=== PATIENT | male | born 1985 | race Caucasian/White ===

== ENCOUNTER 2017-06-26 00:55 | Emergency (ER) | payer SELFPAY ==
[~2017-06-26] VITALS: Ht 177.8 cm; Wt 65.8 kg
[~2017-06-26 00:55] MED LIST: (None)20 M1 PO; ACYC800 PO; ALBU90I INH; ALBU90OI INH; AMOX500 PO; AZIT250 PO; Amoxicillin500 MG PO; BENZ100A PO; CODGUAEL PO; CYCL10 PO; DIPH50 PO; Flonase 0.05% N16 GM; HYDACE10B PO; HYDACE5 PO; HYOS.125 SL; IBUP800 PO; KETO10 PO; METCAR500 PO; NAPR500 PO; OXYACE5T PO; OXYC5 PO; PRED10 PO; PROM25 PO; Pepcid40 MG PO; RANI150 PO; RXOXYACE PO; RXTRAM50 PO; SILSUL1TC TOP; TAMS.4ER PO; TRAM50 PO; [UNRECOGNIZED DRUG - REMARK]
[2017-06-26] MEDS ORDERED: Imitrex25 MG PO (04:55)
== END 2017-06-26 05:00 | disposition home or self-care (01) ==
LOC: ER 00:55
DX: R51 Headache (principal); Z88.5 Allergy status to narcotic agent; F17.210 Nicotine dependence, cigarettes, uncomplicated
CPT/HCPCS: 96372; 99283; J1885; Q0163

== ENCOUNTER → 2018-07-27 | Outpatient (CLI) | payer SELFPAY ==
[~2018-07-27] MED LIST changes: +Imitrex25 MG PO; +Zantac150 MG PO
[2018-07-27 10:17] LABS: BASOPHILS ABSOLUTE AUTO 0.03 K/mm3 (0.00-0.23); BASOPHILS PERCENT AUTO 0 % (0-2); EOSINOPHILS ABSOLUTE AUTO 0.01 K/mm3 (0.00-0.68); EOSINOPHILS PERCENT AUTO 0 % (0-6); Hematocrit 47.6 % (37.0-53.0); Hemoglobin 16.8 g/dL (13.5-17.5); IMMATURE GRAN ABSOLUTE AUTO 0.01 K/mm3 (0.00-0.10); IMMATURE GRAN PERCENT AUTO 0 % (0-1); LYMPHOCYTES ABSOLUTE AUTO 1.24 K/mm3 (0.84-5.20); LYMPHOCYTES PERCENT AUTO 18 % (21-46); MONOCYTES PERCENT AUTO 11 % (4-13); Mean Corpuscular HGB 29.5 pg (26.0-34.0); Mean Corpuscular HGB Conc 35.3 g/dL (31.5-36.5); Mean Corpuscular Volume 84 fL (80-100); Mean Platelet Volume 9.1 fL (9.1-12.4); NEUTROPHILS ABSOLUTE AUTO 4.91 K/mm3 (1.96-9.15); NEUTROPHILS PERCENT AUTO 70 % (41-73); Platelet Count 289 K/mm3 (150-400); RDW Coefficient Variation 12.1 % (11.7-14.2); RDW Standard Deviation 36.4 fL (35.1-46.3); Red Blood Cell Count 5.69 M/mm3 (4.30-5.90)
[2018-07-27 10:26] LABS: Alanine Aminotransfer (ALT/SGP 58 U/L (12-78); Albumin, Blood 4.1 g/dL (3.4-5.0); Albumin/Globulin Ratio 1.2 (0.8-1.8); Alk Phos 87 U/L (40-126); Anion Gap 10 mmol/L (6-16); Aspartate Aminotrans (AST/SGOT 24 U/L (12-37); Bilirubin, Total 1.2 mg/dL (0.1-1.0); Blood Urea Nitrogen 23 mg/dL (8-24); Bun/Creatinine Ratio 21.3 (12.0-20.0); CO2, Blood 27 mmol/L (21-32); Calcium, Blood 8.4 mg/dL (8.5-10.1); Chloride, Blood 99 mmol/L (98-108); Creatinine, Blood 1.08 mg/dL (0.60-1.20); Globulin, Blood 3.4 g/dL (2.2-4.0); Glomerular Filtration Rate >60 (60-); Glucose, Blood 103 mg/dL (70-99); Potassium, Blood 3.6 mmol/L (3.5-5.5); Sodium, Blood 136 mmol/L (136-145); Total Protein, Blood 7.5 g/dL (6.4-8.2)
== END ==
LOC: LAB SHORT 10:12 → LAB EV 10:12
PROVIDERS: Emergency Medicine
DX: R19.7 Diarrhea, unspecified (principal); R11.2 Nausea with vomiting, unspecified
CPT/HCPCS: 80053; 85025

== ENCOUNTER → 2023-10-16 | Outpatient (CLI) | payer OTHER ==
[~2023-10-16] MED LIST changes: +GABAPENTIN; +OMEP20ER; +PROPRANOLOL HCL
[2023-10-19 14:20] LABS: CALPROTECTIN,FECAL 29 ug/g (<=49)
[2023-10-19 14:28] LABS: PANCREATIC ELASTASE,FECAL >800 ug/g (>=100)
== END | disposition home or self-care (01) ==
LOC: LAB SHORT 11:04
PROVIDERS: Family Medicine
DX: R10.9 Unspecified abdominal pain (principal)
CPT/HCPCS: 82653; 83993; 87338